=== PATIENT | male | born 1945 | race American Indian/Alaskan Native ===

== ENCOUNTER 2017-08-14 09:59 | Day surgery (SDC) | payer MEDICARE, OTHER ==
[2017-07-31 12:58] VITALS: BMI 29.5
[~2017-08-14 09:59] MED LIST: Ciprofloxacin 0.3% OPTH SOLN OD SCH; Flurbiprofen 0.03% Opht SOLN OD SCH; Lactated Ringer's 500 ML IV ONE; Lidocaine 2% MPF (5 ml) Inj ONE; Phenylephrine 2.5% Opht Soln OD SCH; Tropicamide 1% Opht SOLUTION OD SCH
[2017-08-14] MEDS ORDERED: Lactated Ringer's 500 ML IV ONE (10:45)
[2017-08-14] MEDS ORDERED: Midazolam 2 MG/2 ML VIAL ONE (12:25)
[2017-08-14] MEDS ORDERED: Tobramycin/Dexamethasone OPHT OINT ONE (12:41)
[2017-08-14] MEDS ORDERED: Povidone Iodine Ophthalmic 5% Soln ONE (12:41)
[2017-08-14] MEDS ORDERED: Tetracaine 0.5% Ophth (OR ONLY) ONE (12:41)
[2017-08-14] MEDS ORDERED: Carbachol 0.01% IO ONE (12:41)
[2017-08-14] MEDS ORDERED: Chondroitin/Hyaluronate Opth Syringe KIT (0.55 ml-0.5 ml) IO ONE (12:42)
[2017-08-14] MEDS ORDERED: Hyaluronidase Human, Recombi 150 U/ML VIAL ONE (12:42)
[2017-08-14 14:01] VITALS: BP 153/66; PULSE 68; RESP 18; TEMP 98; O2SAT 100
--- NOTE | 2017-08-14 20:18 | OP ---
PROCEDURE DATE: 08/14/2017 PREOPERATIVE DIAGNOSIS: Mature cataract, right eye. POSTOPERATIVE DIAGNOSIS: Mature cataract, right eye. OPERATIVE PROCEDURE: Phacoemulsification of right eye, insertion of posterior chamber lens implant. SURGEON: Jose Luis Camarena MD CO-SURGEON: Brian Mendoza MD TYPE OF ANESTHESIA: Local IV sedation. DESCRIPTION OF PROCEDURE: The patient was brought into the operating room, placed in supine position, prepped and draped in the usual fashion for ophthalmic surgery. Lid speculum was inserted, lids and exposing globe. A side-port incision was made superiorly and inferiorly with a disposable sharp blade. Anterior chamber was filled with Viscoat. A near clear corneal incision was made temporally with a 2.75-mm keratome. Capsulorrhexis was then performed with Utrata forceps. Hydrodissection carried out with balanced salt solution. Nucleus was phacoemulsified. Remaining cortical fragments were removed with a split irrigation and aspiration system. The capsular sac was filled with Provisc. A posterior chamber lens was then injected into the capsular sac and rotated into horizontal position. Provisc was aspirated out of the anterior chamber. The pupil was constricted with Miochol. The wound was found to be watertight. Topical Betadine, Timoptic, and TobraDex ointment and pressure patch were applied. The patient tolerated the procedure well. Jose Luis Camarena MD
== END 2017-08-14 14:00 | disposition home or self-care (01) ==
LOC: C.SDS 09:59
PROVIDERS: ATTEND Ophthalmology
DX: H25.11 Age-related nuclear cataract, right eye (principal)
CPT/HCPCS: 66984; 82948; J2250; J3010; J3470; J7120; V2632

== ENCOUNTER 2017-10-02 08:42 | Day surgery (SDC) | payer MEDICARE, OTHER ==
[2017-07-31 13:03] VITALS: BMI 29.5
[~2017-10-02 08:42] MED LIST changes: -Ciprofloxacin 0.3% OPTH SOLN OD SCH; +Ciprofloxacin 0.3% OPTH SOLN OS SCH; -Flurbiprofen 0.03% Opht SOLN OD SCH; +Flurbiprofen 0.03% Opht SOLN OS SCH; -Phenylephrine 2.5% Opht Soln OD SCH; +Phenylephrine 2.5% Opht Soln OS SCH; -Tropicamide 1% Opht SOLUTION OD SCH; +Tropicamide 1% Opht SOLUTION OS SCH; +acetaZOLAMIDE 500 mg SR Cap PO ONE
[2017-10-02] MEDS ORDERED: Lactated Ringer's 500 ML IV ONE (10:24)
[2017-10-02 10:34] VITALS: RESP 18; O2SAT 100
[2017-10-02] MEDS ORDERED: Tetracaine 0.5% Ophth (OR ONLY) ONE (11:39)
[2017-10-02] MEDS ORDERED: Carbachol 0.01% IO ONE (11:39)
[2017-10-02] MEDS ORDERED: Povidone Iodine Ophthalmic 5% Soln ONE (11:39)
[2017-10-02] MEDS ORDERED: Hyaluronidase Human, Recombi 150 U/ML VIAL ONE (11:40)
[2017-10-02] MEDS ORDERED: Chondroitin/Hyaluronate Opth Syringe KIT (0.55 ml-0.5 ml) IO ONE (11:40)
[2017-10-02] MEDS ORDERED: Midazolam 2 MG/2 ML VIAL ONE (11:50)
[2017-10-02] MEDS: Tobramycin/Dexamethasone OPHT OINT ONE ×2 (11:59→12:08)
[2017-10-02 12:32] VITALS: TEMP 98
[2017-10-02] MEDS ORDERED: acetaZOLAMIDE 500 mg SR Cap PO ONE (12:45)
[2017-10-02 14:06] VITALS: BP 130/70; PULSE 77
--- NOTE | 2017-10-02 22:47 | OP ---
PROCEDURE DATE: 10/02/2017 PREOPERATIVE DIAGNOSIS: Cataract, left eye. POSTOPERATIVE DIAGNOSIS: Cataract, left eye. OPERATIVE PROCEDURE: Phacoemulsification, left eye, insertion of posterior chamber lens implant. SURGEON: Jose Luis Camarena MD CO-SURGEON: Brian Mendoza MD ANESTHESIA TYPE: Local intravenous sedation. PROCEDURE: The patient was brought into the operating room, placed in supine position, prepped and draped in the usual fashion for ophthalmic surgery. Lid speculum was inserted, lids and exposing globe. A side-port incision was made superiorly and inferiorly with a disposable sharp blade. Anterior chamber was filled with Viscoat. A near clear corneal incision was made temporally with a 2.75-mm keratome. Capsulorrhexis was then performed with Utrata forceps. Hydrodissection carried out with balanced salt solution. Nucleus was phacoemulsified. Remaining cortical fragments were removed with a split irrigation and aspiration system. The capsular sac was filled with Provisc. A posterior chamber lens was then injected into the capsular sac and rotated into horizontal position. Provisc was aspirated out of the anterior chamber. The pupil was constricted with Miochol. The wound was found to be watertight. Topical Betadine, Timoptic, and TobraDex ointment and pressure patch were applied. The patient tolerated the procedure well. Jose Luis Camarena MD
== END 2017-10-02 14:07 | disposition home or self-care (01) ==
LOC: C.SDS 08:42
PROVIDERS: ATTEND Ophthalmology
DX: H25.12 Age-related nuclear cataract, left eye (principal)
CPT/HCPCS: 66984; 82948; J2250; J3010; J3470; J7120; V2632